=== PATIENT | male | born 1960 | race Caucasian/White ===

== ENCOUNTER 2017-01-01 10:13 | Emergency (ER) | payer BC ==
[2017-01-01] MEDS ORDERED: SODIUM CHLORIDE 0.9% 1,000 ML IV STA (10:46)
[2017-01-01] MEDS ORDERED: DICYCLOMINE 20 MG TAB PO STA (10:46)
[2017-01-01] MEDS ORDERED: RX INFO: IV CONTRAST WAS GIVEN 1 EACH MISC MISCELLANE PRN (10:47)
--- NOTE | 2017-01-01 10:49 | ED ---
Abdominal Pain HPI - General Chief Complaint: Abdominal Pain Stated Complaint: abd pain Time Seen by Provider: 01/01/17 10:30 Source: patient Mode of arrival: ambulatory Limitations: no limitations - History of Present Illness Initial Comments: Patient is a 56-year-old male presenting with 1 day's worth of lower abdominal pain. Patient describes as cramping in nature. Patient states he tried Tums which helped his pain. Patient does not relate to food. Patient denies any sick contacts, antibiotics, suspicious food. Patient states this morning he had bright red blood with his bowel movement. Denies noting blood in the stool. Patient states had a similar episode several years ago for which he had a negative EGD. Patient never had a colonoscopy. Patient denies fever, chills , chest pain, shortness breath, nausea, vomiting, diarrhea, constipation, dysuria. - Related Data Previous Rx's Medication Instructions Recorded Dicyclomine [Bentyl] 20 mg PO QID #12 tablet 01/01/17 Allergies Allergy/AdvReac Type Severity Reaction Status Date / Time No Known Allergies Allergy Verified 01/01/17 10:18 Review of Systems ROS Statement: Those systems with pertinent positive or pertinent negative responses have been documented in the HPI. Constitutional: No fever and no chills. HENT: No congestion, no rhinorrhea and no sore throat. Eyes: No discharge and no redness. Respiratory: No cough and no shortness of breath. Cardiovascular: No chest pain and no palpitations. Gastrointestinal: No nausea, no vomiting, +abdominal pain and no diarrhea. Genitourinary: No dysuria and no hematuria. Musculoskeletal: No back pain and no arthralgias. Skin: No pallor and no rash. Neurological: No dizziness and No headaches. ROS Other: All systems not noted in ROS Statement are negative. Past Medical History Past Medical History: Hypertension History of Any Multi-Drug Resistant Organisms: None Reported Past Surgical History: Appendectomy Past Psychological History: No Psychological Hx Reported Smoking Status: Current every day smoker Past Alcohol Use History: None Reported Past Drug Use History: None Reported General Exam - General Exam Comments Initial Comments: Constitutional: Patient appears well-developed and well-nourished. No distress. Head: Normocephalic and atraumatic. Eyes: Conjunctivae and EOM are normal. Right eye exhibits no discharge. Left eye exhibits no discharge. No scleral icterus. Neck: Normal range of motion. Neck supple. Cardiovascular: Normal rate and regular rhythm. No murmur heard. Pulmonary/Chest: Effort normal and breath sounds normal. No respiratory distress. No wheezes. Abdominal: Soft. No distension. Tenderness to suprapubic and left lower quadrant. There is no rebound and no guarding. Rectal exam completed with nurse. No gross blood. No external hemorrhoids. No melena. Musculoskeletal: Normal range of motion. No edema or tenderness. Neurological: Patient alert and oriented to person, place, and time. Skin: Skin is warm and dry. Not diaphoretic. Nursing notes and vitals reviewed. Limitations: no limitations Course Vital Signs 01/01/17 10:15 Temperature 98.1 F Pulse Rate 60 Respiratory 20 Rate Blood Pressure 189/90 O2 Sat by Pulse 99 Oximetry - Reevaluation(s) Reevaluation #1: 01/01/17 12:34 Patient's feeling much better. No episodes of further blood per rectum. Medical Decision Making - Medical Decision Making Patient's a 56-year-old male presenting with crampy abdominal pain x 1 day and today bright red blood in the toilet bowl. Patient's abdominal cramping improved with Bentyl and IV fluids. CBC unremarkable. Hemoglobin 16.8. BMP unremarkable. Lactic acid 0.9. UA negative. Hemoccult was positive. CT abdomen and pelvis negative. Prior to discharge, patient was resting comfortably in bed. Course of stay improved. Abdomen soft nontender. Denies pain. Discussed physical exam and diagnostic tests with patient. Questions answered and patient is agreeable to discharge with close follow up with Primary Care Physician. Instructed to return to Emergency Department if symptoms worsen. GI referral given. - Lab Data Result diagrams: 01/01/17 11:20 01/01/17 11:20 Lab Results 01/01/17 01/01/17 01/01/17 Range/Units 11:20 11:20 11:20 WBC 6.2 (3.8-10.6) k/uL RBC 5.33 (4.30-5.90) m/uL Hgb 16.8 (13.0-17.5) gm/dL Hct 49.2 (39.0-53.0) % MCV 92.3 (80.0-100.0) fL MCH 31.5 (25.0-35.0) pg MCHC 34.1 (31.0-37.0) g/dL RDW 12.3 (11.5-15.5) % Plt Count 139 L (150-450) k/uL Neutrophils % 71 % Lymphocytes % 18 % Monocytes % 6 % Eosinophils % 3 % Basophils % 0 % Neutrophils # 4.5 (1.3-7.7) k/uL Lymphocytes # 1.1 (1.0-4.8) k/uL Monocytes # 0.4 (0-1.0) k/uL Eosinophils # 0.2 (0-0.7) k/uL Basophils # 0.0 (0-0.2) k/uL Sodium 140 (137-145) mmol/L Potassium 4.0 (3.5-5.1) mmol/L Chloride 104 (98-107) mmol/L Carbon Dioxide 27 (22-30) mmol/L Anion Gap 9 mmol/L BUN 13 (9-20) mg/dL Creatinine 0.91 (0.66-1.25) mg/dL Est GFR (MDRD) Af Amer >60 (>60 ml/min/1.73 sqM) Est GFR (MDRD) Non-Af >60 (>60 ml/min/1.73 sqM) Glucose 85 (74-99) mg/dL Plasma Lactic Acid Kar 0.9 (0.7-2.0) mmol/L Calcium 10.0 (8.4-10.2) mg/dL Urine Color Urine Appearance (Clear) Urine pH (5.0-8.0) Ur Specific [place] (1.001-1.035) Urine Protein (Negative) Urine Glucose (UA) (Negative) Urine Ketones (Negative) Urine Blood (Negative) Urine Nitrate (Negative) Urine Bilirubin (Negative) Urine Urobilinogen (<2.0) mg/dL Ur Leukocyte Esterase (Negative) Stool Occult Blood (Negative) 01/01/17 01/01/17 Range/Units 11:20 12:07 WBC (3.8-10.6) k/uL RBC (4.30-5.90) m/uL Hgb (13.0-17.5) gm/dL Hct (39.0-53.0) % MCV (80.0-100.0) fL MCH (25.0-35.0) pg MCHC (31.0-37.0) g/dL RDW (11.5-15.5) % Plt Count (150-450) k/uL Neutrophils % % Lymphocytes % % Monocytes % % Eosinophils % % Basophils % % Neutrophils # (1.3-7.7) k/uL Lymphocytes # (1.0-4.8) k/uL Monocytes # (0-1.0) k/uL Eosinophils # (0-0.7) k/uL Basophils # (0-0.2) k/uL Sodium (137-145) mmol/L Potassium (3.5-5.1) mmol/L Chloride (98-107) mmol/L Carbon Dioxide (22-30) mmol/L Anion Gap mmol/L BUN (9-20) mg/dL Creatinine (0.66-1.25) mg/dL Est GFR (MDRD) Af Amer (>60 ml/min/1.73 sqM) Est GFR (MDRD) Non-Af (>60 ml/min/1.73 sqM) Glucose (74-99) mg/dL Plasma Lactic Acid Kar (0.7-2.0) mmol/L Calcium (8.4-10.2) mg/dL Urine Color Colorless Urine Appearance Clear (Clear) Urine pH 7.0 (5.0-8.0) Ur Specific [place] 1.009 (1.001-1.035) Urine Protein Negative (Negative) Urine Glucose (UA) Negative (Negative) Urine Ketones Negative (Negative) Urine Blood Negative (Negative) Urine Nitrate Negative (Negative) Urine Bilirubin Negative (Negative) Urine Urobilinogen <2.0 (<2.0) mg/dL Ur Leukocyte Esterase Negative (Negative) Stool Occult Blood Positive (Negative) Disposition Clinical Impression: Abdominal pain, Rectal bleeding Disposition: HOME SELF-CARE Condition: Good Instructions: Abdominal Pain (ED), Rectal Bleeding (ED) Prescriptions: Dicyclomine [Bentyl] 20 mg PO QID #12 tablet Referrals: He Dan MD [Primary Care Provider] - 1-2 days Radha Meehan MD [STAFF PHYSICIAN] - 1-2 days
[2017-01-01] MEDS ORDERED: DICYCLOMINE 10 MG CAP PO STA (11:18)
[2017-01-01 11:37] LABS: Basophils % (A) 0 %; CH 32.7; CHCM 35.6; Eosinophils # (A) 0.2 k/uL (0-0.7); Eosinophils % (A) 3 %; HCT 49.2 % (39.0-53.0); HDW 2.31; HGB 16.8 gm/dL (13.0-17.5); Luc % (Auto) 2; Lymphocytes # (A) 1.1 k/uL (1.0-4.8); Lymphocytes % (A) 18 %; MCH 31.5 pg (25.0-35.0); MCHC 34.1 g/dL (31.0-37.0); MCV 92.3 fL (80.0-100.0); Monocytes # (A) 0.4 k/uL (0-1.0); Monocytes % (A) 6 %; Neutrophils # (A) 4.5 k/uL (1.3-7.7); Neutrophils % (A) 71 %; RBC 5.33 m/uL (4.30-5.90); RDW 12.3 % (11.5-15.5); WBC 6.2 k/uL (3.8-10.6); WBC (Perox) 6.28
[2017-01-01 11:54] LABS: Anion Gap 9 mmol/L; Blood Urea Nitrogen 13 mg/dL (9-20); Carbon Dioxide 27 mmol/L (22-30); Chloride 104 mmol/L (98-107); Glucose 85 mg/dL (74-99); Non-African American GFR(MDRD) >60 (>60 ml/min/1.73 sqM); Sodium 140 mmol/L (137-145)
[2017-01-01 12:17] LABS: Appearance,Urine Clear (Clear); Bilirubin,Urine Negative (Negative); Glucose,Urine (UA) Negative (Negative); Ketones,Urine Negative (Negative); Leukocyte Esterase,Urine Negative (Negative); Nitrite,Urine Negative (Negative); Protein,Urine Negative (Negative); Specific Gravity,Urine 1.009 (1.001-1.035); UA Billing (MACRO vs. MICRO) CHEM; Urobilinogen,Urine <2.0 mg/dL (<2.0)
--- NOTE | 2017-01-01 12:23 | CT ---
EXAMINATION TYPE: CT abdomen pelvis w con DATE OF EXAM: 01/01/2017 12:11 PM COMPARISON: NONE HISTORY: pelvic cramping and pressure with hematuria and rectal bleeding CT DLP: 916 mGycm Automated exposure control for dose reduction was used. TECHNIQUE: Helical acquisition of images was performed from the lung bases through the pelvis. CONTRAST: Performed without Oral Contrast and with IV Contrast, patient injected with 100 mL of Omnipaque 300. FINDINGS: Lung bases are clear. There is no pleural effusion. Heart size is normal. There is a small hiatal her selena. The liver spleen pancreas gallbladder appear normal. Bile ducts are not dilated. There is no adrenal mass. Kidneys show satisfactory contrast opacification. There is no hydronephrosis. There is no retro peritoneal adenopathy. Abdominal aorta is atheromatous. Bladder distends smoothly. There is no sign o f a pelvic mass. Appendix is not seen. There is no sign of appendicitis. I see no intestinal wall thi ckening. There are no dilated loops. The bony structures are intact. IMPRESSION: SMALL HIATAL HERNIA. NO SIGN OF ACUTE ABDOMEN AND PELVIS. MILD ATHEROSCLEROTIC VASCULAR DISEASE.
[2017-01-01 12:58] VITALS: BP 160/90; PULSE 53; RESP 16; TEMP 97.6
== END 2017-01-01 12:57 | disposition home or self-care (01) ==
LOC: EC 10:13
DX: K62.5 Hemorrhage of anus and rectum (principal); R10.32 Left lower quadrant pain; F17.200 Nicotine dependence, unspecified, uncomplicated; Z90.49 Acquired absence of other specified parts of digestive tract
CPT/HCPCS: 36415; 80048; 83605; 85025; 82272; 81003; 74177; 99284; 96360; 96361; Q9967

== ENCOUNTER 2019-12-21 12:22 | Emergency (ER) | payer BC, OTHER ==
--- NOTE | 2019-12-21 13:12 | ED ---
Head Injury HPI - General Chief complaint: Head Injury Stated complaint: [facility]-Neck injury Time Seen by Provider: 12/21/19 12:56 Source: patient Mode of arrival: ambulatory Limitations: no limitations - History of Present Illness Initial comments: Patient is a 59-year-old male presenting to the emergency department with a chief complaint of a head injury. Patient reports he was at work when one of his colleagues excellently swung a ladder and hit him on the right temporal region. Patient states patient denies loss of consciousness, however he does r eport a mild migraine which has gradually resolved. She does report some pain in his left shoulder even though he there is no trauma to the region. Denies any lightheadedness, dizziness, blurry vision or pain with any extraocular movements. Denies taking any medication to alleviate the pain. - Related Data Home Medications Medication Instructions Recorded Confirmed No Known Home Medications 12/21/19 12/21/19 Allergies/Adverse reactions: Allergies Allergy/AdvReac Type Severity Reaction Status Date / Time No Known Allergies Allergy Verified 12/21/19 13:30 Review of Systems ROS Statement: Those systems with pertinent positive or pertinent negative responses have been documented in the HPI. ROS Other: All systems not noted in ROS Statement are negative. Past Medical History Past Medical History: Hypertension History of Any Multi-Drug Resistant Organisms: None Reported Past Surgical History: Appendectomy Past Psychological History: No Psychological Hx Reported Smoking Status: Current every day smoker Past Alcohol Use History: None Reported Past Drug Use History: Marijuana General Exam Limitations: no limitations General appearance: alert, in no apparent distress Head exam: Present: atraumatic (Very mild abrasion on the right periorbital region with the ladder made contact), normocephalic, normal inspection. Absent: other (Negative Chang sign, negative hemotympanum, negative periorbital ecchymosis.) Eye exam: Present: normal appearance, PERRL, EOMI Pupils: Present: normal accommodation ENT exam: Present: normal exam, normal oropharynx, mucous membranes moist Neck exam: Present: normal inspection, full ROM Respiratory exam: Present: normal lung sounds bilaterally Cardiovascular Exam: Present: regular rate, normal rhythm, normal heart sounds Extremities exam: Present: normal inspection, full ROM Back exam: Present: normal inspection, full ROM Neurological exam: Present: alert, oriented X3 Psychiatric exam: Present: normal affect, normal mood Skin exam: Present: warm, dry, intact, normal color Course Vital Signs 12/21/19 12:29 Temperature 97.6 F Pulse Rate 66 Respiratory 20 Rate Blood Pressure 200/97 O2 Sat by Pulse 98 Oximetry Medical Decision Making - Medical Decision Making Patient is a 59-year-old male presenting to emergency Department with a chief complaint of head injury. Patient was hit with a ladder on the right temporal region. No loss of consciousness. Physical examination is only remarkable for a very small abrasion on the lateral orbital region. No blurry vision, no pain with extraocular movements. CT of brain and C-spine is remarkable. Patient is not on blood thinners. No crepitus in the neck or midline tenderness. Patient does not have any complaints at this time. Patient discharged and advised to follow with primary care. Advised to alternate between Tylenol Motrin for pain control advised to return to emergency department if symptoms worsen. Case discussed with physician. Disposition Clinical Impression: Head trauma Disposition: HOME SELF-CARE Condition: Stable Instructions (If sedation given, give patient instructions): Neck Pain (ED) Additional Instructions: Alternate between Tylenol and Motrin for pain control. Return to emergency department if symptoms worsen. Follow-up with primary care. Is patient prescribed a controlled substance at d/c from ED?: No Referrals: He Dan MD [Primary Care Provider] - 1-2 days Time of Disposition: 14:06
--- NOTE | 2019-12-21 13:38 | CT ---
EXAMINATION TYPE: CT brain montse jones DATE OF EXAM: 12/21/2019 COMPARISON: None HISTORY: Left sided injury today. Neck and shoulder pain CT DLP: 1470.[address] of the brain was performed. The ventricles, basal cisterns and sulci overlying the cerebral convexities demonstrate enlargement. There is no evidence for intracranial hemorrhage or sulcal effacement. There is decreased attenuatio n about the periventricular white matter and deep white matter of both cerebral hemispheres, compatib le with chronic small vessel ischemia. No mass effects are seen. If symptoms persist consider MRI. Osseous calvarium is intact. IMPRESSION: 1. Age related atrophic and chronic small vessel ischemic change without acute intracranial process seen at this time. CT Cervical Spine: Unenhanced CT of the cervical spine was performed with bone and soft tissue window settings submitted . Coronal and sagittal reconstruction is obtained. There is normal alignment and prevertebral soft tissues. No evidence for acute cervical fracture . Scattered degenerative disc disease and spondylosis. Biapical scarring. IMPRESSION: 1. No evidence for acute fracture or subluxation of the cervical spine.
[2019-12-21 14:56] VITALS: BP 190/120; PULSE 64; RESP 18; TEMP 97.7
== END 2019-12-21 14:50 | disposition home or self-care (01) ==
LOC: EC 12:22
DX: S09.90XA Unspecified injury of head, initial encounter (principal); S00.211A Abrasion of right eyelid and periocular area, initial encounter; I10 Essential (primary) hypertension; F17.200 Nicotine dependence, unspecified, uncomplicated; W51.XXXA Accidental striking against or bumped into by another person, initial encounter; Y93.89 Activity, other specified; Y92.69 Other specified industrial and construction area as the place of occurrence of the external cause; Y99.0 Civilian activity done for income or pay
CPT/HCPCS: 70450; 72125; 99283

== ENCOUNTER → 2020-07-09 | Outpatient (CLI) | payer OTHER ==
--- NOTE | 2020-07-09 15:34 | XR ---
EXAMINATION TYPE: XR hand complete RT, XR wrist complete RT DATE OF EXAM: 07/09/2020 CLINICAL HISTORY: pain TECHNIQUE: Frontal, lateral and oblique images of the right hand are obtained. COMPARISON: None. FINDINGS: There is no acute fracture/dislocation evident. The joint spaces appear within normal limi ts. The overlying soft tissue appears unremarkable. IMPRESSION: There is no acute fracture or dislocation ICD 10 NO FRACTURE, INITIAL EVALUATION EXAMINATION TYPE: XR hand complete RT, XR wrist complete RT DATE OF EXAM: 07/09/2020 CLINICAL HISTORY: pain TECHNIQUE: Frontal, lateral and oblique images of the right wrist are obtained. COMPARISON: None. FINDINGS: There is no acute fracture/dislocation evident. The joint spaces appear within normal limits. The o verlying soft tissue appears unremarkable. IMPRESSION: There is no acute fracture or dislocation seen. ICD 10 NO FRACTURE, INITIAL EVALUATION
== END | disposition home or self-care (01) ==
LOC: RADXRMAIN 15:17
PROVIDERS: ATTEND Emergency Medicine
DX: S60.221A Contusion of right hand, initial encounter (principal); S60.211A Contusion of right wrist, initial encounter; S61.401A Unspecified open wound of right hand, initial encounter

== ENCOUNTER → 2020-07-16 | Outpatient (CLI) | payer OTHER ==
--- NOTE | 2020-07-16 12:43 | XR ---
EXAMINATION TYPE: XR hand complete RT DATE OF EXAM: 07/16/2020 CLINICAL HISTORY: pain TECHNIQUE: Frontal, lateral and oblique images of the right wrist are obtained. COMPARISON: None. FINDINGS: There is no acute fracture/dislocation evident. The joint spaces appear within normal limits. The o verlying soft tissue appears unremarkable. IMPRESSION: There is no acute fracture or dislocation seen. ICD 10 NO FRACTURE, INITIAL EVALUATION
== END | disposition home or self-care (01) ==
LOC: RADXRMAIN 12:13
PROVIDERS: ATTEND Emergency Medicine
DX: S60.221D Contusion of right hand, subsequent encounter (principal)